=== PATIENT | male | born 1975 | race Caucasian/White ===

== ENCOUNTER 2016-12-05 21:09 | Emergency (ER) | payer OTHER ==
[~2016-12-05] VITALS: Ht 177.8 cm; Wt 64.9 kg
[2016-12-05] MEDS ORDERED: HYDROmorphone 1mg/ml Carpuject IVP ONE (21:45)
[2016-12-05] MEDS ORDERED: Tubing IV Cassette IV ONE ×2 (21:52→23:11)
[2016-12-05 22:30] LABS: MEAN CORPUSCULAR HEMOGLOBIN 32.2 PG (27.0-31.0); MEAN CORPUSCULAR HGB CONC 34.6 G/DL (32.0-36.0); MEAN CORPUSCULAR VOLUME 93 FL (80-99); MEAN PLATELET VOLUME 7.2 FL (6.5-10.1); PLATELET COUNT 223 K/UL (150-450); RED BLOOD COUNT 4.77 M/UL (4.70-6.10); RED CELL DISTRIBUTION WIDTH 10.9 % (11.6-14.8)
[2016-12-05 22:31] LABS: APPEARANCE,URINE CLEAR; KETONES,URINE 3+ (NEGATIVE); LEUKOCYTE ESTERASE ,URINE NEGATIVE (NEGATIVE); NITRITE,URINE NEGATIVE (NEGATIVE); PH,URINE 6 (4.5-8.0); PROTEIN,URINE 2+ (NEGATIVE); UROBILINOGEN,URINE NORMAL MG/DL (0.0-1.0)
[2016-12-05 22:33] VITALS: BP 179/106
[2016-12-05 22:36] LABS: BASOPHILS % (AUTO) 0.7 % (0.0-2.0); LYMPHOCYTES % (AUTO) 5.8 % (20.0-45.0); MONOCYTES % (AUTO) 3.7 % (1.0-10.0); NEUTROPHILS % (AUTO) 89.8 % (45.0-75.0)
[2016-12-05 22:43] LABS: WBC,URINE 0-2 /HPF (0 - 0)
[2016-12-05 22:43] LABS: ALBUMIN/GLOBULIN RATIO 1.6 (1.0-2.7); CREATININE 1.8 mg/dL (0.7-1.2); GLOMERULAR FILTRATION RATE 41.4 mL/min (>60); POTASSIUM 3.6 mEQ/L (3.4-4.9); TOTAL PROTEIN 7.3 g/dL (6.6-8.7)
[2016-12-05] MEDS ORDERED: NS 55 ML IV ONE (23:11)
[2016-12-05] MEDS ORDERED: cloNIDine 0.2mg Tab ORAL ONE (23:15)
[2016-12-05] MEDS ORDERED: cefTRIAXone 1 GM in NS 55 ML IVPB ONE (23:15)
[2016-12-05] MEDS ORDERED: DIOVAN160 MG ORAL (23:32)
[2016-12-05] MEDS ORDERED: CIPROFLOXACIN500 M2 ORAL (23:32)
[2016-12-05] MEDS ORDERED: HYDROCODON-ACE1 EA15 ORAL (23:32)
--- NOTE | 2016-12-05 23:33 | Emergency Room Report ---
History of Present Illness General Chief Complaint: Back Pain-No Injury Source: Patient Present Illness HPI This is a 41-year-old male with history of kidney stone the past. He never cars surgery or stent placement. He presents with chief complaint of left flank pain this started around 4 AM. Pain was severe. 10 out of 10. Has nausea vomiting. Now with throbbing pain. No fever chills but no nausea no vomiting. Has some urinary hesitancy. Pain right now as 8/10. Worse with palpation. Allergies: Coded Allergies: No Known Allergies (Unverified , 12/05/16) Patient History Past Medical History: see triage record, old chart reviewed Past Surgical History: none Pertinent Family History: none Social History: Denies: smoking Immunizations: other Reviewed Nursing Documentation: PMH: Agreed, PSxH: Agreed Nursing Documentation-PMH Past Medical History: No Stated History Review of Systems Eye: Denies: blurred vision, eye pain ENT: Denies: ear pain, nose congestion, throat swelling Respiratory: Denies: cough, shortness of breath Cardiovascular: Denies: chest pain, palpitations Gastrointestinal: Denies: abdominal pain, diarrhea, nausea, vomiting Musculoskeletal: Reports: back pain, Denies: joint pain Skin: Denies: rash Neurological: Denies: headache, numbness Endocrine: Denies: increased thirst, increased urine Hematologic/Lymphatic: Denies: easy bruising All Other Systems: negative except mentioned in HPI Physical Exam Vital Signs Date Time Temp Pulse Resp B/P Pulse Ox O2 Delivery O2 Flow Rate FiO2 12/05/16 21:17 99.3 105 15 180/110 99 Room Air vitals with hypertension Sp02 EP Interpretation: reviewed, normal General Appearance: well appearing, no apparent distress, alert Head: normocephalic, atraumatic Eyes: bilateral eye EOMI, bilateral eye PERRL ENT: hearing grossly normal, normal pharynx Neck: full range of motion, supple, no meningismus Respiratory: chest non-tender, lungs clear, normal breath sounds Cardiovascular #1: regular rate, rhythm, no murmur Gastrointestinal: normal bowel sounds, non tender, no mass, no organomegaly, no bruit, non-distended Musculoskeletal: back normal, gait/station normal, normal range of motion, other - Left flank/upper quadrant pain Neurologic: alert, oriented x3 Psychiatric: mood/affect normal Skin: warm/dry Medical Decision Making Diagnostic Impression: Primary Impression: Ureteral stone with hydronephrosis Additional Impressions: Hypertension Qualified Codes: I10 - Essential (primary) hypertension Proteinuria Qualified Codes: R80.9 - Proteinuria, unspecified Chronic kidney disease Qualified Codes: N18.9 - Chronic kidney disease, unspecified ER Course Patient presents with ureteral stone with hydronephrosis. Because of the stranding, patient on antibiotics. He probably has on control diabetes. No evidence of endorgan damage. Creatinine is elevated however. I discussed the case with Dr. Thornton, urologist, who agreed with the treatment plan. Because of the size of the stone, he doesn't think patient will be stenting. Agree with antibiotics prophylactically. We'll put patient on blood pressure medication also. Lab Results Impression labs with elevated creatinine CT/MRI/US Diagnostic Results CT/MRI/US Diagnostic Results : Imaging Test Ordered: CT abdomen and pelvis Impression Read by radiologist. Moderate left hydroureteronephrosis with the perinephric stranding. 2 mm stone at the left UVJ. Last Vital Signs Date Time Temp Pulse Resp B/P Pulse Ox O2 Delivery O2 Flow Rate FiO2 12/05/16 23:12 183/106 12/05/16 22:33 98.5 84 17 96 Room Air Status: improved Disposition: HOME, SELF-CARE Condition: Stable Scripts Valsartan (Diovan) 160 Mg Tablet 160 MG ORAL DAILY, #90 TAB Prov: SOCORRO HERNÁNDEZ M.D. 12/05/16 Hydrocodone/Acetaminophen 5-325* (HYDROCODONE/ACETAMINOPHEN 5-325*) 1 Each Tablet 1 TAB ORAL Q6H Y for For Pain, #30 TAB 0 Refills Prov: SOCORRO HERNÁNDEZ M.D. 12/05/16 Ciprofloxacin Hcl* (CIPROFLOXACIN HCL*) 500 Mg Tablet 500 MG ORAL Q12H, #14 TAB 0 Refills Prov: SOCORRO HERNÁNDEZ M.D. 12/05/16 Referrals: NON PHYSICIAN (PCP) Additional Instructions: Followup with your [facility] in 7 days. Return for fever, chills, nausea, vomiting, or any concern. You would need referral to see a urologist if not better. SOCORRO HERNÁNDEZ M.D. Dec 05, 2016 23:33
[2016-12-05 23:55] VITALS: BP 157/107
[2016-12-05 23:56] VITALS: BP 157/107
--- NOTE | 2016-12-06 09:35 | Diagnostic Imaging Report ---
Indication: Left flank pain Technique: CT scan of the abdomen and pelvis utilizing automated exposure control without intravenous or oral contrast. Axial, sagittal and coronal images were obtained. CT dose: Total DLP 571 mGycm; CTDI vol 10.8 mGy Comparison: None Findings: Evaluation of the solid organs is limited without intravenous contrast material. Lung bases are clear. There is mild to moderate left hydronephrosis and hydroureter with a 2 mm calculus at the left ureterovesical junction. Left periureteral and perinephric stranding are seen. There is a nonobstructive 3 mm calculus in the left kidney. The adrenal glands, liver, spleen and pancreas are unremarkable. No CT evident gallstones are seen. The small bowel loops are normal in caliber. The appendix is normal. There is no free intraperitoneal air. Bladder is not well distended. The osseous structures demonstrate no acute abnormality. Impression: Approximately 2 mm calculus of the left ureterovesical junction with mild to moderate left hydronephrosis and hydroureter. Left periureteral and perinephric stranding. Superimposed infection not excluded. Nonobstructive calculus in the left kidney. Bladder not well distended with questionable wall thickening. Cystitis not excluded and correlation with urinalysis recommended. The CT scanner at [facility] is accredited by the [employer] and the scans are performed using protocols designed to limit radiation exposure to as low as reasonably achievable to attain images of sufficient resolution adequate for diagnostic evaluation.
== END 2016-12-05 23:58 | disposition home or self-care (01) ==
LOC: EMR 21:45
DX: N13.2 Hydronephrosis with renal and ureteral calculous obstruction (principal); I12.9 Hypertensive chronic kidney disease with stage 1 through stage 4 chronic kidney disease, or unspecified chronic kidney disease; N18.9 Chronic kidney disease, unspecified; R80.9 Proteinuria, unspecified
CPT/HCPCS: 36415; 74176; 80053; 81003; 83690; 85025; 96360; 96361; 96374; 96375; 99284; J0696; J1170; J2405